=== PATIENT | male | born 1950 | race Caucasian/White ===

== ENCOUNTER 2019-01-10 19:23 | Emergency (ER) | payer OTHER ==
[~2019-01-10] VITALS: Ht 182.9 cm; Wt 77.1 kg
[2019-01-10 19:38] VITALS: BP 137/84
--- NOTE | 2019-01-10 19:54 | NUR ---
TO ER BED 7
[2019-01-10] MEDS ORDERED: NACL 0.9% 1,000 ML IV ONE (20:05)
[2019-01-10 20:12] VITALS: BP 137/84
--- NOTE | 2019-01-10 20:12 | NUR ---
PATIENT PRESENTS TO ED WITH C/O ETOH WITHDRAWAL, LAST DRINK WAS EARLIER TODAY, 4 CANS OF BEER. PATIENT DENIES ANY HI/SI, OR HX OF SZ. PT ALSO DENIES N/V/D; SKIN IS PINK/WARM/DRY; AAOX4 WITH EVEN AND STEADY GAIT; LUNGS CLEAR BL; HR EVEN AND REGULAR; PT DENIES ANY FEVER, CP, SOB, OR COUGH AT THIS TIME; PATIENT STATES PAIN OF 0/10 AT THIS TIME; VSS; PATIENT POSITIONED FOR COMFORT; HOB ELEVATED; BEDRAILS UP X2; BED DOWN. ER MD MADE AWARE OF PT STATUS.
--- NOTE | 2019-01-10 20:15 | NUR ---
PATIENT LEFT WITHOUT BEING SEEN BY DR. CARLSON. NO FURTHER CARE PROVIDED FOR PATIENT.
== END 2019-01-10 20:15 | disposition left against medical advice (07) ==
LOC: MED 19:23
DX: F10.239 Alcohol dependence with withdrawal, unspecified (principal); Y90.9 Presence of alcohol in blood, level not specified; Z53.21 Procedure and treatment not carried out due to patient leaving prior to being seen by health care provider